=== PATIENT | male | born 1995 | race Caucasian/White ===

== ENCOUNTER 2020-08-22 16:42 | Emergency (ER) | payer OTHER ==
[~2020-08-22] VITALS: Ht 182.8 cm; Wt 154.2 kg
== END 2020-08-22 18:48 | disposition home or self-care (01) ==
LOC: ED 16:42
DX: S61.211A Laceration without foreign body of left index finger without damage to nail, initial encounter (principal); W26.8XXA Contact with other sharp object(s), not elsewhere classified, initial encounter; Y93.89 Activity, other specified; Y92.89 Other specified places as the place of occurrence of the external cause; Y99.9 Unspecified external cause status

== ENCOUNTER 2024-06-19 13:23 | Emergency (ER) | payer OTHER ==
[~2024-06-19] VITALS: Wt 90.7 kg
[2024-06-19] MEDS ORDERED: OMEPRAZOLE MAGN20 MG PO (14:04)
[2024-06-19] MEDS ORDERED: Tdap Vaccine 0.5 ML SYR (Adult Vaccine) IM ONE (14:30)
[2024-06-19] MEDS ORDERED: DERMABOND 1 EA APPL T ONE (15:00)
== END 2024-06-19 14:47 | disposition home or self-care (01) ==
LOC: ED 13:23
DX: S61.212A Laceration without foreign body of right middle finger without damage to nail, initial encounter (principal); W26.8XXA Contact with other sharp object(s), not elsewhere classified, initial encounter; Y93.89 Activity, other specified; Y92.89 Other specified places as the place of occurrence of the external cause; Y99.8 Other external cause status